=== PATIENT | male | born 1990 | race Caucasian/White ===

== ENCOUNTER → 2018-08-22 | Outpatient (CLI) | payer BC | END | disposition home or self-care (01) | LOC: LABWHC1 10:48 | PROVIDERS: ATTEND Physician Assistant | DX: G44.009 Cluster headache syndrome, unspecified, not intractable (principal) | CPT/HCPCS: 36415; 82565; 84520 ==

== ENCOUNTER → 2018-08-24 | Outpatient (CLI) | payer BC ==
--- NOTE | 2018-08-24 16:06 | MR ---
EXAMINATION TYPE: MR brain wo/w con DATE OF EXAM: 08/24/2018 COMPARISON: NONE HISTORY: Cluster headache per order. TECHNIQUE: Multiplanar, multisequence images of the brain and brainstem is performed without and with IV contras t, utilizing 7.5 mL intravenous Gadavist . FINDINGS: Exam slightly suboptimal due to patient motion artifact. Diffusion weighted images demonstr ate no evidence of a recent infarct or other diffusion abnormality. There is no extra-axial fluid co llection or significant white matter signal abnormality. The ventricular system and cisternal spaces are normal in size and appearance. The brain volume is age appropriate. Midline structures demonstrate normal morphology. The craniocervical junction appears within normal limits. Post contrast images demonstrate no abnormal enhancement. The dural venous sinuses appear pa tent. The visualized sinuses are clear and the globes are intact. IMPRESSION: No suspicious finding identified to account for patient's symptoms of headache.
== END | disposition home or self-care (01) ==
LOC: RADMRIMAIN 06:35
PROVIDERS: ATTEND Physician Assistant
DX: G44.009 Cluster headache syndrome, unspecified, not intractable (principal)
CPT/HCPCS: 70553; A9585

== ENCOUNTER → 2019-03-21 | Outpatient (CLI) | payer BC ==
--- NOTE | 2019-03-21 08:40 | US ---
EXAMINATION TYPE: US renal artery duplex complet DATE OF EXAM: 03/21/2019 COMPARISON: NONE CLINICAL HISTORY: I10 HYPERTENSION. Pt states HTN x 6 months MEASUREMENTS: RENAL SIZE: Rt Kidney: 10.3 x 4.8 x 5.4 cm Lt Kidney: 12.4 x 5.5 x 5.7 cm RESISTANCE INDEX Right: 0.6 Left: 0.6 RA/AO RATIO (< 3.5 ) Right: 1.2 Left: 1.0 RA VELOCITY ( < 180 cm/s) Right: 141 Left: 121 IMPRESSION: No evidence of significant renal artery stenosis bilaterally
== END | disposition home or self-care (01) ==
LOC: RADUSWWP 06:58
PROVIDERS: ATTEND Family Medicine
DX: I10 Essential (primary) hypertension (principal)
CPT/HCPCS: 93975